=== PATIENT | female | born 1970 | race Two or more races ===

== ENCOUNTER 2019-01-20 15:26 | Emergency (ER) | payer MEDICAID ==
[~2019-01-20] VITALS: Ht 152.4 cm; Wt 57.2 kg
[2019-01-20] MEDS ORDERED: PROMETHAZINE HCL 25 MG/ML 1ML IM ONE (16:45)
[2019-01-20] MEDS ORDERED: KETOROLAC TROMETH 60MG/2ML VIAL IM ONE (16:45)
[2019-01-20] MEDS ORDERED: diphenhdrAMINE HCL 25 MG CAP PO ONE (16:45)
[2019-01-20 16:48] VITALS: BP 139/69
== END 2019-01-20 17:51 | disposition home or self-care (01) ==
LOC: ER 15:32
DX: R51 Headache (principal); E11.9 Type 2 diabetes mellitus without complications; I10 Essential (primary) hypertension; M19.90 Unspecified osteoarthritis, unspecified site; F17.210 Nicotine dependence, cigarettes, uncomplicated
CPT/HCPCS: 70450; 96372; 99284; J1885; J2550

== ENCOUNTER 2019-03-13 10:41 | Inpatient (IN) | payer MEDICAID ==
[~2019-03-13] VITALS: Ht 152.4 cm; Wt 65.5 kg
[~2019-03-13 10:41] MED LIST: AML5T PO; ASPI-404 PO; ATOR20TA50 PO; BENA10TA9 PO; CHOL20007 PO; FERR-20 PO; FOLI1TAB6 PO; FURO1TAB33 PO; INSU1INJ19 SC; METF-370 PO; METH2.5T3 PO; OMEP20TA PO; SEMA2INJ2 SC; WARF2TAB49 PO; WARF3TAB22 PO
[2019-03-13] MEDS ORDERED: SODIUM CHLORIDE 0.9% 500 ML IVB ONE (10:57)
[2019-03-13] MEDS ORDERED: MORPHINE SULFATE 4 MG/ML SYR/VIAL IV ONE (11:00)
[2019-03-13] MEDS ORDERED: FAMOTIDINE (10MG/ML) 2ML VL IV ONE (11:00)
[2019-03-13] MEDS ORDERED: ONDANSETRON HCL 4 MG/2 ML VIAL IV ONE (11:00)
[2019-03-13 11:33] LABS: Basophils # (auto) 0 uL; Basophils % (auto) 0.5 % (0.0-2.0); Eosinophils # (auto) 0.3 uL; Eosinophils % (auto) 3.4 % (0.0-7.0); Hematocrit 44.9 % (36.0-46.0); Hemoglobin 15.4 g/dL (12.2-16.2); Lymphocytes # (auto) 1.9 uL; Lymphocytes % (auto) 24.4 % (10.0-50.0); Mean Corpuscular Hemoglobin 32.7 pg (28.0-32.0); Mean Corpuscular Hgb Conc. 34.3 g/dL (32.0-36.0); Mean Corpuscular Volume 95.2 fL (80.0-100.0); Monocytes # (auto) 0.7 uL; Monocytes % (auto) 8.3 % (0.0-12.0); Neutrophils % (auto) 63.4 % (37.0-80.0); Nucleated Red Blood Cells % 0.2 %; Platelet Count (auto) 290 10^3/uL (140-450); Red Blood Cells 4.72 10^6/uL (4.0-5.20); White Blood Cell 7.9 10^3/uL (4.4-10.8)
[2019-03-13 11:49] LABS: Albumin 4.3 g/dL (3.4-5.0); BUN/Creatinine Ratio 14.1; Calcium 9.4 mg/dL (8.5-10.1); Magnesium 1.7 mg/dL (1.6-2.6); Potassium 4.3 mmol/L (3.5-5.1)
[2019-03-13 11:55] LABS: Bilirubin, Total 1.6 mg/dL (0.2-1.0); Total Protein 9.2 g/dL (6.4-8.2)
[2019-03-13 13:19] LABS: Urine Bacteria NONE SEEN /hpf (None Seen); Urine Blood Negative /uL (Negative); Urine Specific Gravity 1.008 (1.001-1.035); Urine WBC 4 /hpf (0 - 5)
[2019-03-13] MEDS ORDERED: SODIUM CHLORIDE 0.9% 1,000 ML IV SCH (14:26)
[2019-03-13] MEDS ORDERED: DEXTROSE (50%) 50ML SYRG IV PRN (14:30)
[2019-03-13] MEDS ORDERED: ONDANSETRON HCL 4 MG/2 ML VIAL IV PRN (14:30)
[2019-03-13] MEDS ORDERED: MORPHINE SULF INJ 2 MG/ML SYRINGE 1ML IV PRN ×2 (14:30)
[2019-03-13] MEDS ORDERED: NITROGLYCERIN 0.4 MG SL TAB SL PRN (14:30)
[2019-03-13] MEDS ORDERED: ACETAMINOPHEN 500 MG TAB PO PRN (14:30)
[2019-03-13] MEDS: cefTRIAXone 1GM/50ML D5W 50 ML IV SCH (15:17)
[2019-03-13] MEDS: metroNIDAZOLE 500MG/100ML 100 ML IV SCH ×2 (15:50→22:38)
[2019-03-13 16:42] LABS: INR 4.57 (0.9-1.15)
[2019-03-13] MEDS: InsuLIN REG 1unit/0.01ml Soln (100units/ml) SC SCH ×2 (17:00→21:23)
[2019-03-13] MEDS: ACCU-CHEK COMFORT CURVE STRIP VI SCH ×2 (17:00→21:23)
--- NOTE | 2019-03-13 17:15 | NUR ---
MS ADMIT TO FLOOR ASSUMED CARE OF PATIENT. ORIGINALLY TO BE ADMITTED TO ROOM 222A BUT INSTEAD PLACED 217A. PATIENT AWAKE AND ALERT SITTING UP IN BED. PATIENT PRIMARILY [place]BODIAN SPEAKING BUT UNDERSTANDS MOST [place] ISLANDER. REVIEWED POC WITH PATIENT AND INSTRUCTED TO CALL FOR ASSIST NEEDED. ORIENTED PATIENT TO CALL LIGHT, PHONE AND VISITING HOURS. BED IN LOWEST LOCKED POSITION, CALL LIGHT WITHIN REACH. WILL CONTINUE TO MONITOR.
[2019-03-13] MEDS: metFORMIN HYDROCHLORIDE 500 MG TAB PO SCH (18:00)
[2019-03-13] MEDS: HYDROcodone-ACET 5/325MG TAB PO PRN (18:22)
[2019-03-13 18:33] VITALS: BP 108/62
--- NOTE | 2019-03-13 18:51 | NUR ---
END OF SHIFT NOTE PATIENT AWAKE AND ALERT SITTING UP IN BED EATING DINNER. NO S/S OF DISTRESS OR SOB NOTED. BED IN LOWEST LOCKED POSITION, CALL LIGHT WITHIN REACH. WILL CONTINUE TO MONITOR. Addendum: 03/13/19 at 1852 by HI DE LA PAZ RN PLEASE DISREGARD, WILL ENDORSE CARE TO NOC RN UPON SHIFT CHANGE.
--- NOTE | 2019-03-13 19:35 | NUR ---
Opening Shift Note Assumed care of patient, awake and alert. No S/S of distress/SOB or pain. Bed locked in lowest position, side rails upx2, call light within reach. Instructed on POC and to call for assist PRN, will continue to monitor for changes Q1hr and PRN.
[2019-03-13] MEDS: DOCUSATE SOD 100 MG CAP PO SCH (21:18)
[2019-03-13] MEDS: ATORVASTATIN 20 MG TAB PO SCH (21:18)
[2019-03-13 22:01] VITALS: BP 95/59
[2019-03-14 05:25] VITALS: BP 118/72
[2019-03-14] MEDS: metroNIDAZOLE 500MG/100ML 100 ML IV SCH (06:30)
[2019-03-14] MEDS: ACCU-CHEK COMFORT CURVE STRIP VI SCH ×4 (06:33→21:26)
[2019-03-14] MEDS: InsuLIN REG 1unit/0.01ml Soln (100units/ml) SC SCH ×4 (06:33→21:26)
[2019-03-14 07:19] LABS: Basophils # (auto) 0 uL; Basophils % (auto) 0.7 % (0.0-2.0); Eosinophils # (auto) 0.3 uL; Eosinophils % (auto) 4.1 % (0.0-7.0); Hematocrit 39.3 % (36.0-46.0); Hemoglobin 13.3 g/dL (12.2-16.2); Lymphocytes # (auto) 2.3 uL; Mean Corpuscular Hemoglobin 32.6 pg (28.0-32.0); Mean Corpuscular Hgb Conc. 33.7 g/dL (32.0-36.0); Mean Corpuscular Volume 96.6 fL (80.0-100.0); Monocytes # (auto) 0.6 uL; Monocytes % (auto) 9.4 % (0.0-12.0); Neutrophils # (auto) 3.4 uL; Neutrophils % (auto) 51.8 % (37.0-80.0); Nucleated Red Blood Cells % 0.1 %; Platelet Count (auto) 247 10^3/uL (140-450); Red Blood Cells 4.07 10^6/uL (4.0-5.20); Red Cell Distribution Width 12.8 % (11.8-14.3); White Blood Cell 6.6 10^3/uL (4.4-10.8)
[2019-03-14 07:26] LABS: BUN/Creatinine Ratio 16.1; Calcium 7.8 mg/dL (8.5-10.1); Potassium 3.5 mmol/L (3.5-5.1)
--- NOTE | 2019-03-14 07:42 | NUR ---
OPENING SHIFT NOTE ASSUMED CARE OF PATIENT. PATIENT AWAKE AND ALERT SITTING UP IN BED. AID AT BEDSIDE OBTAINING VS AT THIS TIME. NO S/S OF DISTRESS OR SOB NOTED. BED IN LOWEST LOCKED POSITION, CALL LIGHT WITHIN REACH. CONTINUING TO MONITOR.
[2019-03-14 08:00] VITALS: BP 126/61
[2019-03-14] MEDS: cefTRIAXone 1GM/50ML D5W 50 ML IV SCH (09:11)
[2019-03-14] MEDS: DOCUSATE SOD 100 MG CAP PO SCH ×2 (09:12→21:25)
[2019-03-14] MEDS: metFORMIN HYDROCHLORIDE 500 MG TAB PO SCH ×2 (09:12→18:46)
[2019-03-14] MEDS: FAMOTIDINE 20 MG TAB PO SCH (09:12)
[2019-03-14] MEDS: ASPirin-EC 81 mg tab PO SCH (09:13)
[2019-03-14] MEDS: amLODIPine BESYLATE 5 MG TAB PO SCH (09:13)
[2019-03-14] MEDS: HYDROcodone-ACET 5/325MG TAB PO PRN ×2 (09:13→20:22)
[2019-03-14] MEDS ORDERED: OMEPRAZOLE 20MG CAP PO SCH (10:00)
[2019-03-14 12:00] VITALS: BP 114/72
--- NOTE | 2019-03-14 14:25 | NUR ---
AT BEDSIDE DR CEBALLOS AT BEDSIDE AT THIS TIME. NEW ORDERS PLACED. CONTINUING TO MONITOR.
[2019-03-14 15:00] VITALS: BP 148/92
--- NOTE | 2019-03-14 19:17 | NUR ---
END OF SHIFT NOTE PATIENT AWAKE AND ALERT SITTING UP IN BED. NO S/S OF DISTRESS OR SOB NOTED. BED IN LOWEST LOCKED POSITION, CALL LIGHT WITHIN REACH. CARE ENDORSED TO NOC RN.
[2019-03-14] MEDS: ATORVASTATIN 20 MG TAB PO SCH (21:26)
[2019-03-14 21:30] VITALS: BP 130/68
[2019-03-15 05:00] VITALS: BP 140/65
[2019-03-15] MEDS: InsuLIN REG 1unit/0.01ml Soln (100units/ml) SC SCH ×2 (06:18→11:30)
[2019-03-15] MEDS: ACCU-CHEK COMFORT CURVE STRIP VI SCH ×2 (06:18→11:30)
[2019-03-15] MEDS: HYDROcodone-ACET 5/325MG TAB PO PRN (06:19)
[2019-03-15 07:06] LABS: INR 1.64 (0.9-1.15)
[2019-03-15 08:15] VITALS: BP 130/69
[2019-03-15] MEDS: metFORMIN HYDROCHLORIDE 500 MG TAB PO SCH (08:15)
[2019-03-15] MEDS: cefTRIAXone 1GM/50ML D5W 50 ML IV SCH (08:53)
[2019-03-15 09:21] VITALS: BP 130/69
[2019-03-15] MEDS: FAMOTIDINE 20 MG TAB PO SCH (09:47)
[2019-03-15] MEDS: DOCUSATE SOD 100 MG CAP PO SCH (09:47)
[2019-03-15] MEDS: amLODIPine BESYLATE 5 MG TAB PO SCH (09:48)
[2019-03-15] MEDS: ASPirin-EC 81 mg tab PO SCH (09:48)
--- NOTE | 2019-03-15 11:54 | NUR ---
Nutrition Assessment Notes please see attached link for complete assessment Est. Needs BW [id number] kcal (23-25 kcal/kgBW), 65-71 gms pro (1.0-1.1 gms/kgBW). Will continue to monitor pertinent labs and reassess nutrient need prn Addendum: 03/15/19 at [address] Amended: Links added.
[2019-03-15 13:00] VITALS: BP 131/61
[2019-03-15 17:00] VITALS: BP 128/66
[2019-03-15 18:19] VITALS: BP 129/66
== END 2019-03-15 19:09 | disposition home or self-care (01) | DRG 463 ==
LOC: ER 10:41 → OVERFLOW 10:42 → CENTRAL 17:16
PROVIDERS: ADMIT Nurse Practitioner Acute Care; ATTEND Hospitalist
DX: N39.0 Urinary tract infection, site not specified (principal); E11.42 Type 2 diabetes mellitus with diabetic polyneuropathy; E11.51 Type 2 diabetes mellitus with diabetic peripheral angiopathy without gangrene; I11.0 Hypertensive heart disease with heart failure; I50.9 Heart failure, unspecified; E78.5 Hyperlipidemia, unspecified; I25.10 Atherosclerotic heart disease of native coronary artery without angina pectoris; M19.90 Unspecified osteoarthritis, unspecified site; R19.7 Diarrhea, unspecified; F17.210 Nicotine dependence, cigarettes, uncomplicated; I09.9 Rheumatic heart disease, unspecified; Z79.01 Long term (current) use of anticoagulants; Z95.2 Presence of prosthetic heart valve; Z79.4 Long term (current) use of insulin; Z82.49 Family history of ischemic heart disease and other diseases of the circulatory system
CPT/HCPCS: 36415; 74176; 80048; 80053; 81001; 82150; 82784; 82962; 83036; 83516; 83690; 83735; 85025; 85610; 86255; 87081; 87086; 93005; 94761; 96361; 96374; 96375; G0378; J0696; J1815; J2405; J3490

== ENCOUNTER 2019-04-21 09:55 | Inpatient (IN) | payer MEDICAID ==
[~2019-04-21] VITALS: Ht 160 cm; Wt 62.2 kg
[2019-04-21] MEDS ORDERED: SODIUM CHLORIDE 0.9% 500 ML IVB ONE (10:16)
[2019-04-21] MEDS ORDERED: MORPHINE SULFATE 4 MG/ML SYR/VIAL IV ONE (10:30)
[2019-04-21] MEDS ORDERED: ONDANSETRON HCL 4 MG/2 ML VIAL IV ONE (10:30)
[2019-04-21 10:53] LABS: Hematocrit 46.9 % (36.0-46.0); Hemoglobin 15.9 g/dL (12.2-16.2); Mean Corpuscular Hemoglobin 32.1 pg (28.0-32.0); Mean Corpuscular Hgb Conc. 33.9 g/dL (32.0-36.0); Mean Corpuscular Volume 94.6 fL (80.0-100.0); Platelet Count (auto) 253 10^3/uL (140-450); Red Blood Cells 4.96 10^6/uL (4.0-5.20); Red Cell Distribution Width 13.4 % (11.8-14.3); White Blood Cell 21.1 10^3/uL (4.4-10.8)
[2019-04-21 10:57] LABS: Urine Bacteria FEW /hpf (None Seen); Urine Blood TRACE /uL (Negative); Urine Specific Gravity 1.024 (1.001-1.035); Urine WBC 19 /hpf (0 - 5)
[2019-04-21 10:57] LABS: Basophils % (manual) 0 (0.0-2.0); Blast Cells 0; Eosinophils % (manual) 0 (0-7); Metamyelocytes % 0; Myelocytes % 0; Promyelocytes % 0; Reactive Lymphocytes 0
[2019-04-21 11:04] LABS: Albumin 4.8 g/dL (3.4-5.0); BUN/Creatinine Ratio 17.9; Calcium 6.2 mg/dL (8.5-10.1); Magnesium 1.9 mg/dL (1.6-2.6)
[2019-04-21 11:07] LABS: Band Neutrophils % (manual) 1; Lymphocytes % (manual) 3 (10.0-50.0); Monocytes % (manual) 5 (0-12)
[2019-04-21 11:09] LABS: Bilirubin, Total 1.6 mg/dL (0.2-1.0); Total Protein 9.7 g/dL (6.4-8.2)
[2019-04-21] MEDS ORDERED: MORPHINE SULF INJ 2 MG/ML SYRINGE 1ML IV PRN (12:00)
[2019-04-21] MEDS ORDERED: DEXTROSE (50%) 50ML SYRG IV PRN (12:00)
[2019-04-21] MEDS ORDERED: ONDANSETRON HCL 4 MG/2 ML VIAL IV PRN (12:00)
[2019-04-21] MEDS ORDERED: NITROGLYCERIN 0.4 MG SL TAB SL PRN (12:00)
[2019-04-21] MEDS ORDERED: ACETAMINOPHEN 500 MG TAB PO PRN (12:00)
[2019-04-21] MEDS: cefTRIAXone 1GM/50ML D5W 50 ML IV SCH (12:49)
[2019-04-21] MEDS: FAMOTIDINE 20 MG TAB PO SCH (12:49)
[2019-04-21] MEDS: SODIUM CHLORIDE 0.9% 1,000 ML IV SCH ×2 (12:50→16:40)
[2019-04-21 13:47] LABS: INR 1.22 (0.9-1.15); Partial Thromboplastin Time 31.9 sec (23.64-32.05)
[2019-04-21] MEDS: MORPHINE SULF INJ 2 MG/ML SYRINGE 1ML IV PRN (16:07)
[2019-04-21] MEDS: InsuLIN REG 1unit/0.01ml Soln (100units/ml) SC SCH ×2 (17:00→21:54)
[2019-04-21] MEDS ORDERED: WARFARIN SODIUM 10 MG TAB PO ONE (17:00)
[2019-04-21 17:19] VITALS: BP 133/69
[2019-04-21] MEDS: ACCU-CHEK COMFORT CURVE STRIP VI SCH ×2 (17:29→21:54)
[2019-04-21 17:38] VITALS: BP 133/69
[2019-04-21 21:51] VITALS: BP 109/52
[2019-04-21] MEDS: DOCUSATE SOD 100 MG CAP PO SCH (21:53)
[2019-04-21] MEDS: ATORVASTATIN 20 MG TAB PO SCH (21:53)
[2019-04-21] MEDS: INSULIN LANTUS (GLARGINE) 1 /0.01ml (100units/ml) SC SCH (21:54)
[2019-04-21] MEDS: HYDROcodone-ACET 5/325MG TAB PO PRN (21:59)
[2019-04-22] MEDS: SODIUM CHLORIDE 0.9% 1,000 ML IV SCH ×3 (04:07→14:51)
[2019-04-22 05:00] VITALS: BP 147/67
[2019-04-22] MEDS: ACCU-CHEK COMFORT CURVE STRIP VI SCH ×4 (06:30→21:29)
[2019-04-22] MEDS: InsuLIN REG 1unit/0.01ml Soln (100units/ml) SC SCH ×4 (06:30→21:28)
[2019-04-22] MEDS: HYDROcodone-ACET 5/325MG TAB PO PRN (08:34)
[2019-04-22] MEDS: DOCUSATE SOD 100 MG CAP PO SCH ×2 (08:34→21:32)
[2019-04-22] MEDS: ASPirin-EC 81 mg tab PO SCH (08:35)
[2019-04-22] MEDS: FAMOTIDINE 20 MG TAB PO SCH (08:35)
[2019-04-22] MEDS: cefTRIAXone 1GM/50ML D5W 50 ML IV SCH (08:35)
[2019-04-22] MEDS: BENAZEPRIL HCL 10 MG TAB PO SCH (08:36)
[2019-04-22] MEDS: amLODIPine BESYLATE 5 MG TAB PO SCH (08:36)
[2019-04-22 09:00] VITALS: BP 144/70
[2019-04-22 09:14] LABS: Basophils # (auto) 0 uL; Basophils % (auto) 0.4 % (0.0-2.0); Eosinophils # (auto) 0 uL; Eosinophils % (auto) 0.3 % (0.0-7.0); Hematocrit 39.2 % (36.0-46.0); Hemoglobin 13.3 g/dL (12.2-16.2); Lymphocytes # (auto) 1.1 uL; Lymphocytes % (auto) 13.4 % (10.0-50.0); Mean Corpuscular Hemoglobin 32.1 pg (28.0-32.0); Mean Corpuscular Volume 94.4 fL (80.0-100.0); Monocytes # (auto) 0.5 uL; Monocytes % (auto) 6.2 % (0.0-12.0); Neutrophils # (auto) 6.3 uL; Neutrophils % (auto) 79.7 % (37.0-80.0); Platelet Count (auto) 194 10^3/uL (140-450); Red Blood Cells 4.16 10^6/uL (4.0-5.20); Red Cell Distribution Width 13.1 % (11.8-14.3); White Blood Cell 7.9 10^3/uL (4.4-10.8)
[2019-04-22 09:28] LABS: INR 1.43 (0.9-1.15); Partial Thromboplastin Time 36.9 sec (23.64-32.05)
[2019-04-22 09:36] LABS: BUN/Creatinine Ratio 13.8; Calcium 7.7 mg/dL (8.5-10.1); Potassium 3.7 mmol/L (3.5-5.1)
[2019-04-22 13:00] VITALS: BP 134/60
[2019-04-22] MEDS ORDERED: NYSTATIN TOPICAL POWDER 15GM TOP ONE (14:15)
[2019-04-22] MEDS: CLINDAMYCIN 300MG IV 50 ML IV SCH ×2 (14:51→21:32)
[2019-04-22] MEDS: MORPHINE SULF INJ 2 MG/ML SYRINGE 1ML IV PRN ×2 (15:42→20:14)
[2019-04-22 17:00] VITALS: BP 128/84
[2019-04-22] MEDS ORDERED: WARFARIN SODIUM 2.5 MG TAB PO ONE (17:00)
[2019-04-22] MEDS: NYSTATIN TOPICAL POWDER 15GM TOP SCH (21:27)
[2019-04-22] MEDS: ATORVASTATIN 20 MG TAB PO SCH (21:27)
[2019-04-22] MEDS: INSULIN LANTUS (GLARGINE) 1 /0.01ml (100units/ml) SC SCH (21:29)
[2019-04-22 22:00] VITALS: BP 143/67
[2019-04-23] MEDS: MORPHINE SULF INJ 2 MG/ML SYRINGE 1ML IV PRN ×2 (03:01→10:22)
[2019-04-23] MEDS: SODIUM CHLORIDE 0.9% 1,000 ML IV SCH ×2 (03:02→10:45)
[2019-04-23 05:00] VITALS: BP 127/64
[2019-04-23 06:14] LABS: Basophils # (auto) 0 uL; Basophils % (auto) 0.4 % (0.0-2.0); Eosinophils # (auto) 0.2 uL; Eosinophils % (auto) 2.5 % (0.0-7.0); Hematocrit 37.3 % (36.0-46.0); Hemoglobin 12.7 g/dL (12.2-16.2); Lymphocytes # (auto) 1.5 uL; Lymphocytes % (auto) 20.7 % (10.0-50.0); Mean Corpuscular Hemoglobin 32.1 pg (28.0-32.0); Mean Corpuscular Volume 94.6 fL (80.0-100.0); Monocytes # (auto) 0.9 uL; Monocytes % (auto) 12.6 % (0.0-12.0); Neutrophils # (auto) 4.7 uL; Neutrophils % (auto) 63.8 % (37.0-80.0); Nucleated Red Blood Cells % 0.1 %; Platelet Count (auto) 197 10^3/uL (140-450); Red Blood Cells 3.94 10^6/uL (4.0-5.20); Red Cell Distribution Width 12.9 % (11.8-14.3); White Blood Cell 7.4 10^3/uL (4.4-10.8)
[2019-04-23] MEDS: CLINDAMYCIN 300MG IV 50 ML IV SCH ×3 (06:16→21:36)
[2019-04-23] MEDS: ACCU-CHEK COMFORT CURVE STRIP VI SCH ×4 (06:20→21:37)
[2019-04-23] MEDS: InsuLIN REG 1unit/0.01ml Soln (100units/ml) SC SCH ×4 (06:20→21:36)
[2019-04-23 06:30] LABS: INR 3.35 (0.9-1.15)
[2019-04-23 06:35] LABS: BUN/Creatinine Ratio 13.3; Calcium 7.7 mg/dL (8.5-10.1); Magnesium 2.3 mg/dL (1.6-2.6); Potassium 3.6 mmol/L (3.5-5.1)
[2019-04-23 08:54] VITALS: BP 124/56
[2019-04-23] MEDS: DOCUSATE SOD 100 MG CAP PO SCH ×2 (10:17→21:36)
[2019-04-23] MEDS: amLODIPine BESYLATE 5 MG TAB PO SCH (10:18)
[2019-04-23] MEDS: BENAZEPRIL HCL 10 MG TAB PO SCH (10:20)
[2019-04-23] MEDS: cefTRIAXone 1GM/50ML D5W 50 ML IV SCH (10:21)
[2019-04-23] MEDS: ASPirin-EC 81 mg tab PO SCH (10:21)
[2019-04-23] MEDS: FAMOTIDINE 20 MG TAB PO SCH (10:21)
[2019-04-23] MEDS: NYSTATIN TOPICAL POWDER 15GM TOP SCH ×2 (10:22→21:37)
[2019-04-23] MEDS ORDERED: FUROSEMIDE 20 MG TAB PO ONE (11:00)
[2019-04-23] MEDS ORDERED: POTASSIUM CHL 10 Meq TABLET PO ONE (11:00)
[2019-04-23 11:55] VITALS: BP 127/63
[2019-04-23 16:57] VITALS: BP 122/61
[2019-04-23] MEDS: ATORVASTATIN 20 MG TAB PO SCH (21:36)
[2019-04-23] MEDS: INSULIN LANTUS (GLARGINE) 1 /0.01ml (100units/ml) SC SCH (21:37)
[2019-04-23 21:50] VITALS: BP 129/59
[2019-04-24] MEDS: SODIUM CHLORIDE 0.9% 1,000 ML IV SCH (04:28)
[2019-04-24 05:10] VITALS: BP 124/52
[2019-04-24] MEDS: CLINDAMYCIN 300MG IV 50 ML IV SCH (06:03)
[2019-04-24] MEDS: InsuLIN REG 1unit/0.01ml Soln (100units/ml) SC SCH ×2 (06:24→11:52)
[2019-04-24] MEDS: ACCU-CHEK COMFORT CURVE STRIP VI SCH ×2 (06:25→11:31)
[2019-04-24 06:46] LABS: INR 2.89 (0.9-1.15); Partial Thromboplastin Time 46.4 sec (23.64-32.05)
[2019-04-24 06:50] LABS: Calcium 8.4 mg/dL (8.5-10.1); Potassium 3.9 mmol/L (3.5-5.1)
[2019-04-24 06:53] LABS: BUN/Creatinine Ratio 12.2
[2019-04-24 08:37] VITALS: BP 126/75
[2019-04-24] MEDS: cefTRIAXone 1GM/50ML D5W 50 ML IV SCH (09:58)
[2019-04-24] MEDS: DOCUSATE SOD 100 MG CAP PO SCH (09:58)
[2019-04-24] MEDS: BENAZEPRIL HCL 10 MG TAB PO SCH (09:59)
[2019-04-24] MEDS ORDERED: POTASSIUM CHL 10 Meq TABLET PO SCH (10:00)
[2019-04-24] MEDS: amLODIPine BESYLATE 5 MG TAB PO SCH (10:00)
[2019-04-24] MEDS ORDERED: FUROSEMIDE 20 MG TAB PO SCH (10:00)
[2019-04-24] MEDS: FAMOTIDINE 20 MG TAB PO SCH (10:00)
[2019-04-24] MEDS: ASPirin-EC 81 mg tab PO SCH (10:00)
[2019-04-24] MEDS: NYSTATIN TOPICAL POWDER 15GM TOP SCH (10:01)
[2019-04-24] MEDS ORDERED: CLIN300C8 PO (11:02)
[2019-04-24] MEDS ORDERED: SACC250C PO (11:17)
[2019-04-24 12:06] VITALS: BP 126/75
[2019-04-24 13:00] VITALS: BP 132/73
== END 2019-04-24 15:00 | disposition home or self-care (01) | DRG 720 ==
LOC: ER 09:57 → TELE 09:58 → TELE-WESTW 15:46
PROVIDERS: ADMIT Nurse Practitioner Acute Care; ATTEND Internal Medicine
DX: A41.9 Sepsis, unspecified organism (principal); I11.0 Hypertensive heart disease with heart failure; E11.65 Type 2 diabetes mellitus with hyperglycemia; I50.9 Heart failure, unspecified; K21.9 Gastro-esophageal reflux disease without esophagitis; M06.9 Rheumatoid arthritis, unspecified; L03.116 Cellulitis of left lower limb; F17.210 Nicotine dependence, cigarettes, uncomplicated; M19.90 Unspecified osteoarthritis, unspecified site; E78.5 Hyperlipidemia, unspecified; I25.10 Atherosclerotic heart disease of native coronary artery without angina pectoris; N30.00 Acute cystitis without hematuria; Z79.4 Long term (current) use of insulin; Z82.49 Family history of ischemic heart disease and other diseases of the circulatory system; Z87.440 Personal history of urinary (tract) infections; Z95.1 Presence of aortocoronary bypass graft; Z95.2 Presence of prosthetic heart valve; Z79.899 Other long term (current) drug therapy
CPT/HCPCS: 36415; 74176; 80048; 80053; 81001; 82150; 82962; 83036; 83690; 83735; 85007; 85025; 85027; 85610; 85730; 87040; 87086; 93970; 97116; 97163; 97530; G0378; J0696; J1815; J2405; J3490

== ENCOUNTER 2019-05-03 07:38 | Emergency (ER) | payer SELFPAY ==
[~2019-05-03] VITALS: Ht 160 cm; Wt 62.1 kg
[~2019-05-03 07:38] MED LIST changes: +CLIN300C8 PO; +SACC250C PO
[2019-05-03 07:52] VITALS: BP 150/76
[2019-05-03] MEDS ORDERED: cefTRIAXone SOD 1,000 MG VL IM ONE (08:15)
[2019-05-03] MEDS ORDERED: IBUPROFEN 600 MG TAB PO ONE (08:15)
== END 2019-05-03 09:12 | disposition home or self-care (01) ==
LOC: ER 07:40
DX: L03.116 Cellulitis of left lower limb (principal); I11.0 Hypertensive heart disease with heart failure; I50.9 Heart failure, unspecified; E11.9 Type 2 diabetes mellitus without complications; M19.90 Unspecified osteoarthritis, unspecified site; Z98.61 Coronary angioplasty status; F17.210 Nicotine dependence, cigarettes, uncomplicated; Z79.4 Long term (current) use of insulin; Z86.73 Personal history of transient ischemic attack (TIA), and cerebral infarction without residual deficits; Z79.899 Other long term (current) drug therapy
CPT/HCPCS: 96372; 99283; J0696

== ENCOUNTER 2019-08-11 06:11 | Emergency (ER) | payer MEDICAID ==
[~2019-08-11] VITALS: Ht 160 cm; Wt 59.0 kg
[2019-08-11 07:10] LABS: Urine Bacteria NONE SEEN /hpf (None Seen); Urine Blood Negative /uL (Negative); Urine Budding Yeast MODERATE /hpf (None Seen); Urine Mucus FEW (None Seen); Urine Specific Gravity 1.035 (1.001-1.035); Urine WBC 2 /hpf (0 - 5)
[2019-08-11 07:25] LABS: Basophils # (auto) 0.1 uL; Basophils % (auto) 0.6 % (0.0-2.0); Eosinophils # (auto) 0.1 uL; Eosinophils % (auto) 1.8 % (0.0-7.0); Hematocrit 43.3 % (36.0-46.0); Hemoglobin 14.9 g/dL (12.2-16.2); Lymphocytes # (auto) 1.6 uL; Lymphocytes % (auto) 19.4 % (10.0-50.0); Mean Corpuscular Hemoglobin 32.1 pg (28.0-32.0); Mean Corpuscular Hgb Conc. 34.4 g/dL (32.0-36.0); Mean Corpuscular Volume 93.3 fL (80.0-100.0); Monocytes # (auto) 0.6 uL; Monocytes % (auto) 7.3 % (0.0-12.0); Neutrophils # (auto) 5.7 uL; Neutrophils % (auto) 70.9 % (37.0-80.0); Nucleated Red Blood Cells % 0.1 %; Platelet Count (auto) 243 10^3/uL (140-450); Red Blood Cells 4.64 10^6/uL (4.0-5.20); Red Cell Distribution Width 13.7 % (11.8-14.3)
[2019-08-11 07:45] LABS: Albumin 3.7 g/dL (3.4-5.0); Calcium 8.5 mg/dL (8.5-10.1); Magnesium 1.9 mg/dL (1.6-2.6); Potassium 4.2 mmol/L (3.5-5.1)
[2019-08-11 07:48] LABS: BUN/Creatinine Ratio 16.1
[2019-08-11 07:51] LABS: Bilirubin, Total 1.1 mg/dL (0.2-1.0); Total Protein 8.2 g/dL (6.4-8.2)
[2019-08-11] MEDS ORDERED: SODIUM CHLORIDE 0.9% 1,000 ML IV ONE (08:29)
[2019-08-11] MEDS ORDERED: SODIUM CHLORIDE 0.9% 500 ML IVB ONE (08:29)
[2019-08-11] MEDS ORDERED: MORPHINE SULFATE 4 MG/ML SYR/VIAL IV ONE (08:30)
[2019-08-11] MEDS ORDERED: PROMETHAZINE HCL 25 MG/ML 1ML IV PRN (08:30)
[2019-08-11 09:30] LABS: INR 0.96 (0.9-1.15); Partial Thromboplastin Time 26.8 sec (23.64-32.05)
[2019-08-11 10:37] VITALS: BP 151/63
[2019-08-11] MEDS ORDERED: InsuLIN REG 1unit/0.01ml Soln (100units/ml) SC ONE (11:15)
== END 2019-08-11 11:42 | disposition home or self-care (01) ==
LOC: ER 06:11
DX: R10.31 Right lower quadrant pain (principal); E11.65 Type 2 diabetes mellitus with hyperglycemia; M06.9 Rheumatoid arthritis, unspecified; K59.01 Slow transit constipation; K21.9 Gastro-esophageal reflux disease without esophagitis; E78.5 Hyperlipidemia, unspecified; F17.210 Nicotine dependence, cigarettes, uncomplicated; Z79.4 Long term (current) use of insulin; Z79.899 Other long term (current) drug therapy; Z98.61 Coronary angioplasty status
CPT/HCPCS: 36415; 71046; 74176; 80053; 81001; 81025; 82150; 82962; 83690; 83735; 84443; 85025; 85610; 85730; 96361; 96372; 96374; 96375; 99284; J1815; J2270; J2550; J7030; J7040

== ENCOUNTER 2019-12-05 14:06 | Inpatient (IN) | payer MEDICAID ==
[2019-12-05] VITALS (30 sets, daily range): BP systolic 43–257; BP diastolic 15–186
[~2019-12-05] VITALS: Ht 152.4 cm; Wt 62.0 kg
[2019-12-05] MEDS ORDERED: LORazepam 2MG/ML-1ML VIAL IV ONE (14:30)
[2019-12-05 14:55] LABS: Basophils # (auto) 0.1 10 ^3/uL (0-0.2); Basophils % (auto) 0.4 % (0.0-2.0); Eosinophils # (auto) 0.1 10 ^3/uL (0-0.8); Eosinophils % (auto) 0.4 % (0.0-7.0); Hematocrit 51.3 % (36.0-46.0); Lymphocytes # (auto) 2.5 10 ^3/uL (0.4-5.4); Lymphocytes % (auto) 15.9 % (10.0-50.0); Mean Corpuscular Hemoglobin 32.5 pg (28.0-32.0); Mean Corpuscular Hgb Conc. 33.1 g/dL (32.0-36.0); Mean Corpuscular Volume 98.1 fL (80.0-100.0); Monocytes # (auto) 0.8 10 ^3/uL (0-1.3); Monocytes % (auto) 4.8 % (0.0-12.0); Neutrophils # (auto) 12.2 10 ^3/uL (1.6-8.6); Neutrophils % (auto) 78.5 % (37.0-80.0); Nucleated Red Blood Cells % 0.1 %; Platelet Count (auto) 399 10^3/uL (140-450); Red Blood Cells 5.23 10^6/uL (4.0-5.20); White Blood Cell 15.5 10^3/uL (4.4-10.8)
[2019-12-05] MEDS ORDERED: FUROSEMIDE 40 MG/4 ML VIAL IV ONE (15:00)
[2019-12-05 15:07] LABS: Albumin 3.6 g/dL (3.4-5.0); Calcium 9.1 mg/dL (8.5-10.1); Potassium 3.8 mmol/L (3.5-5.1)
[2019-12-05] MEDS ORDERED: AZITHROMYCIN 500MG/ 250ML 250 ML IV ONE (15:15)
[2019-12-05] MEDS ORDERED: cefTRIAXone 1GM/50ML D5W 50 ML IV ONE (15:15)
[2019-12-05 15:21] LABS: BUN/Creatinine Ratio 17.2
[2019-12-05 15:26] LABS: Bilirubin, Total 1.1 mg/dL (0.2-1.0)
[2019-12-05] MEDS ORDERED: NITROGLYCERIN 0.4 MG SL TAB SL PRN ×2 (15:30→15:45)
[2019-12-05] MEDS ORDERED: MORPHINE SULF INJ 2 MG/ML SYRINGE 1ML IV PRN (15:30)
[2019-12-05] MEDS ORDERED: InsuLIN REG 1unit/0.01ml Soln (100units/ml) IV ONE (15:30)
[2019-12-05] MEDS ORDERED: DEXTROSE (50%) 50ML SYRG IV PRN ×3 (15:30→20:15)
[2019-12-05] MEDS ORDERED: MORPHINE SULF INJ 2 MG/ML SYRINGE 1ML IV ONE (15:30)
[2019-12-05 15:37] LABS: Lactic Acid w/Reflex 4.5 mmol/L (0.4-2.0)
[2019-12-05] MEDS ORDERED: MORPHINE SULFATE 4 MG/ML SYR/VIAL IV PRN (15:45)
[2019-12-05] MEDS ORDERED: LORazepam 0.5 MG TAB PO PRN (15:45)
[2019-12-05] MEDS ORDERED: DOXYCYCLINE 100MG/250ML 250 ML IV SCH (15:45)
[2019-12-05] MEDS ORDERED: ONDANSETRON HCL 4 MG/2 ML VIAL IV PRN (15:45)
[2019-12-05 15:55] LABS: CRP High Sensitivity 3.05 mg/dL (< 0.3)
[2019-12-05] MEDS ORDERED: FUROSEMIDE 100 MG/10ML VIAL IV ONE (16:00)
[2019-12-05] MEDS ORDERED: LACTATED RINGER'S 1,000 ML IV SCH (16:30)
[2019-12-05] MEDS ORDERED: SODIUM CHLORIDE 0.9% 1,850 ML IV ONE ×2 (16:30→19:30)
[2019-12-05] MEDS ORDERED: PROPOFOL 0 ML IV ONE (16:50)
[2019-12-05] MEDS ORDERED: LORazepam 2MG/ML-1ML VIAL ONE ×2 (16:55→17:44)
[2019-12-05] MEDS: INSULIN LISPRO (HUMAN) 100 UNITS/ML ML SC SCH (17:00)
[2019-12-05] MEDS ORDERED: NITROGLYCERIN 0.4 MG SL TAB SL ONE (17:00)
--- NOTE | 2019-12-05 17:16 | NUR ---
Pt being admitted to ICU [facility] admitted to ICU via gurney on phototypesetting equipment monitor, and portable 02. Patient transferred to bed, connected to ICU monitoring and oxygen, and weighed by bed scale. Patient oriented to Karishma Robert, primary RN, unit, room, bed, and unit policies. Patient placed on high flow oxygen per respiratory. Patient is Swedish speaking only. Apryl ABATEMENT WORKER spoke to patient via telephone to explain to patient in Swedish about central line placement. Patient verbalized understanding to Apryl and consented to procedure. Dr Cobb at bedside to place central line. Patient combative, restless, and anxious at this time. Patient' respiratory status continued to deteriorate to where patient was becoming lethargic and diaphoretic. Dr Cbob and Dr Davies now at at bedside and agreed that patient needed intubated for airway protection. Due to patient thrashing only primary IV, which was a 22g to left forearm dislodged with no other IV access at this time. Dr Cobb placed right femoral central line and cleared to use for medications for intubation. Dr Cobb intubated patient and patient placed on ventilator. Patient continues to be tachycardic and tachypneic at this time. Sedations started at this time at higher dosing than ordered per protocol due to patients respiratory status, MD aware. Will continue to monitor and titrate as needed.
--- NOTE | 2019-12-05 17:20 | NUR ---
BEDSIDE Dr. Cobb bedside with primary RN Karishma Robert.
[2019-12-05] MEDS ORDERED: BUMETANIDE 2.5mg/10ml (0.25 mg/ml) INJ IV ONE (17:30)
--- NOTE | 2019-12-05 17:30 | NUR ---
RT PAGED RT paged stat to ICU d/t patients tachypnea and sob.
[2019-12-05] MEDS ORDERED: ROCURONIUM 10MG/ML 10ML VIAL IV ONE (17:36)
[2019-12-05] MEDS ORDERED: ETOMIDATE (2MG/ML) 20ML VIAL IV ONE (17:36)
[2019-12-05] MEDS ORDERED: SUCCINYLCHOLINE CHLORIDE 20 MG/ML 10ML VIAL IV ONE (17:36)
--- NOTE | 2019-12-05 17:48 | NUR ---
INTUBATED Dr. Cobb called regarding patient's respiratory status. Order received for intubation. Respiratory Therapist notified and at bedside. Patient instructed on need for intubation and possible sedation while on ventilator. Patient intubated by Reza with 7.5 ETT, 23 at the lip, and OGT/NGT placed. Medications given as follows: Etomidate 20 Suc 120
[2019-12-05] MEDS ORDERED: NOREPINEPHRINE 8 MG/250ML KIT 0 ML IV ONE (17:50)
[2019-12-05] MEDS: FUROSEMIDE 20 MG/2 ML VIAL IV SCH (18:00)
[2019-12-05] MEDS ORDERED: InsuLIN REG 1unit/0.01ml Soln (100units/ml) SC SCH ×2 (18:00→20:00)
[2019-12-05] MEDS ORDERED: ACCU-CHEK COMFORT CURVE STRIP VI SCH (18:00)
[2019-12-05] MEDS ORDERED: fentaNYL Drip 2500mCg/250mlNS 0 ML IV ONE (18:04)
[2019-12-05] MEDS ORDERED: MIDAZOLAM DRIP 50 mg/50mL 50 ML IV ONE (18:04)
[2019-12-05] MEDS: PROPOFOL 100 ML IV SCH (18:05)
[2019-12-05] MEDS: MIDAZOLAM DRIP 50 mg/50mL 50 ML IV SCH (18:05)
[2019-12-05] MEDS ORDERED: PROPOFOL 100 ML IV ONE (18:05)
[2019-12-05] MEDS: CARVEDILOL 3.125 MG TAB PO SCH (18:15)
[2019-12-05] MEDS ORDERED: OSELTAMIVIR 75MG/5ML ORAL SUSP GT ONE (18:15)
--- NOTE | 2019-12-05 18:45 | NUR ---
RT PAGED STAT Patient having peak pressures and desaturating.
[2019-12-05 18:56] LABS: INR 1.23 (0.9-1.15); Partial Thromboplastin Time 33.3 sec (23.64-32.05)
--- NOTE | 2019-12-05 19:00 | NUR ---
CODE BLUE CALLED
--- NOTE | 2019-12-05 19:00 | NUR ---
Hemodynamics Patient blood pressure decreased, while reassessing blood pressure after cuff reposition, patient was noted to have pulse that was decreasing rapidly. Called for crash cart. See code sheet.
[2019-12-05] MEDS ORDERED: NOREPINEPHRINE 8 MG/250ML KIT 250 ML IV ONE (19:03)
--- NOTE | 2019-12-05 19:06 | NUR ---
BEDSIDE Dr. Davies to the bedside. Primary RN Karishma still in room at this time.
[2019-12-05] MEDS ORDERED: AMIODARONE HCL (50 MG/ ML) 3 ML VIAL IV ONE (19:14)
[2019-12-05] MEDS ORDERED: AMIODARONE 450mg/250ml AE 250 ML IV ONE (19:14)
[2019-12-05 19:21] LABS: Lactic Acid w/Reflex 10.8 mmol/L (0.4-2.0)
[2019-12-05] MEDS ORDERED: AMIODARONE HCL 150 MG in D5W 5% 100 ML IV ONE (19:30)
[2019-12-05] MEDS ORDERED: HEPARIN SODIUM (PORCINE) 5000 UNITS/ML 1ML VIAL IV ONE (19:30)
[2019-12-05] MEDS ORDERED: WARFARIN SODIUM 2 MG TAB PO ONE (19:30)
[2019-12-05] MEDS: NOREPINEPHRINE 8 MG/250ML KIT 250 ML IV SCH (19:30)
[2019-12-05] MEDS ORDERED: MAGNESIUM SULFATE 1GM/100ML 100 ML IV ONE (19:30)
[2019-12-05] MEDS ORDERED: AMIODARONE 450mg/250ml AE 250 ML IV SCH (19:33)
[2019-12-05] MEDS ORDERED: HYDROCORTISONE SOD SUCC 100 MG/2ML INJ VIAL IV ONE (19:45)
[2019-12-05] MEDS: ACCU-CHEK COMFORT CURVE STRIP VI SCH ×3 (20:00→22:30)
[2019-12-05] MEDS: VASOPRESSIN 50 UNITS in D5W 5% 247.5 ML IV SCH (20:00)
--- NOTE | 2019-12-05 20:03 | NUR ---
opeing note received patient from [facility]. patient s/p cpr and intubation. intubated with 7.5 ett @22 at lip vent setting ac 16 vt 500 fio2 100% peep 8 stating 1005 spo2 on bedside monitor. sr 95 with bp 119/50 on levophed 30 max support. defib zole monitor at bedside. ngt to right nare patent clamped. east patient to gravity. bed at lowest position. for more information see interventions. for gtts and their titrations see iv spread sheet.
[2019-12-05] MEDS ORDERED: InsuLIN R (HUMAN) 100 UNITS in SODIUM CHL 0.9% 99 ML IV SCH (20:05)
[2019-12-05] MEDS ORDERED: VANCOMYCIN PER PHARMACY 0 MG IV SCH (20:15)
[2019-12-05] MEDS ORDERED: SODIUM BICARBONATE 8.4 % INJ 50ML VIAL IV ONE ×3 (20:15→22:15)
[2019-12-05] MEDS ORDERED: fentaNYL Drip 2500mCg/250mlNS 250 ML IV ONE (20:45)
[2019-12-05] MEDS ORDERED: VANCOMYCIN 1GM/250ML 250 ML IV ONE ×3 (20:45→20:47)
--- NOTE | 2019-12-05 20:45 | NUR ---
orteg porcelain mixer ad bedside updated on patient status, new orders received.
[2019-12-05] MEDS ORDERED: ALBUMIN 5% 250 ML IV ONE (20:48)
[2019-12-05 20:51] LABS: Basophils # (auto) 0 10 ^3/uL (0-0.2); Basophils % (auto) 0.2 % (0.0-2.0); Eosinophils # (auto) 0.1 10 ^3/uL (0-0.8); Eosinophils % (auto) 0.3 % (0.0-7.0); Hematocrit 41.5 % (36.0-46.0); Hemoglobin 13.2 g/dL (12.2-16.2); Lymphocytes # (auto) 1.1 10 ^3/uL (0.4-5.4); Lymphocytes % (auto) 5.7 % (10.0-50.0); Mean Corpuscular Hemoglobin 32.4 pg (28.0-32.0); Mean Corpuscular Hgb Conc. 31.9 g/dL (32.0-36.0); Mean Corpuscular Volume 101.5 fL (80.0-100.0); Monocytes # (auto) 1.1 10 ^3/uL (0-1.3); Neutrophils # (auto) 16.2 10 ^3/uL (1.6-8.6); Neutrophils % (auto) 87.8 % (37.0-80.0); Nucleated Red Blood Cells % 0.1 %; Platelet Count (auto) 267 10^3/uL (140-450); Red Blood Cells 4.08 10^6/uL (4.0-5.20); Red Cell Distribution Width 13.6 % (11.8-14.3); White Blood Cell 18.4 10^3/uL (4.4-10.8)
[2019-12-05 21:01] LABS: INR 1.3 (0.9-1.15); Partial Thromboplastin Time 36.8 sec (23.64-32.05)
[2019-12-05 21:03] LABS: Albumin 2.2 g/dL (3.4-5.0); Magnesium 2.1 mg/dL (1.6-2.6); Potassium 5.1 mmol/L (3.5-5.1)
[2019-12-05 21:12] LABS: BUN/Creatinine Ratio 13.9; Bilirubin, Total 0.6 mg/dL (0.2-1.0); Phosphorus 8.9 mg/dL (2.5-4.90); Total Protein 5.8 g/dL (6.4-8.2)
--- NOTE | 2019-12-05 21:22 | NUR ---
started insulin gtt original finger stick bs is 569. per imer start insulin @ unit per hour then follow hospital protocol
[2019-12-05] MEDS: fentaNYL Drip 2500mCg/250mlNS 250 ML IV SCH (21:25)
--- NOTE | 2019-12-05 21:25 | NUR ---
started patient on fentanyl started at 25mcg for ventilator synchrony. per willams order
--- NOTE | 2019-12-05 21:47 | NUR ---
bs 516 increased to 4 units insulin per sliding scale Addendum: 12/05/19 at 2149 by Doug Cortez RN RN increased to 6 ml/hr
[2019-12-05] MEDS: ASCORBIC ACID 500 MG TAB PO SCH (22:00)
[2019-12-05] MEDS ORDERED: ATORVASTATIN 20 MG TAB PO SCH (22:00)
[2019-12-05] MEDS: PIPERACILLIN-TAZOB 2.25GM 50 ML IV SCH (22:00)
[2019-12-05] MEDS ORDERED: ALBUTEROL SULF HFA 90MCG INH 200DOSE IN SCH (22:00)
[2019-12-05] MEDS: ZINC SULFATE 220mg CAP or TAB PO SCH (22:00)
[2019-12-05] MEDS ORDERED: BENAZEPRIL HCL 10 MG TAB PO SCH (22:00)
[2019-12-05] MEDS: ASPirin-EC 81 mg tab PO SCH (22:00)
[2019-12-05] MEDS ORDERED: INSULIN LANTUS (GLARGINE) 1 /0.01ml (100units/ml) SC SCH (22:00)
[2019-12-05] MEDS ORDERED: SODIUM BICARBONATE 50ML VIAL 150 ML in SOD CHL 0.45% 1,000 ML IV SCH (22:15)
--- NOTE | 2019-12-05 22:20 | NUR ---
CALLED HOSPITALIST UPDATED ON PATIENT STATUS, VERIFIED ORDERS AND NEW ORDERS RECEIVED
--- NOTE | 2019-12-05 22:46 | NUR ---
bs 547 insultin at 6
[2019-12-05] MEDS: HEPARIN DRIP/D5W 100UNITS/ML 250 ML IV SCH (22:58)
--- NOTE | 2019-12-05 22:58 | NUR ---
heparin gtt started bolus per pharmacy given, gtt set at 12units per 62kg = 744units/7.44ml/hr
[2019-12-06] VITALS (99 sets, daily range): BP systolic 81–159; BP diastolic 46–94
--- NOTE | 2019-12-06 00:01 | NUR ---
bs 516 insulin gtt @6
[2019-12-06] MEDS ORDERED: SODIUM CHLORIDE 0.9% 1,000 ML IV SCH ×2 (00:05→02:05)
[2019-12-06] MEDS: HYDROCORTISONE SOD SUCC 100 MG/2ML INJ VIAL IV SCH ×4 (00:28→18:46)
[2019-12-06] MEDS: ACCU-CHEK COMFORT CURVE STRIP VI SCH ×18 (00:28→22:30)
[2019-12-06] MEDS: NOREPINEPHRINE 8 MG/250ML KIT 250 ML IV SCH ×4 (00:33→18:37)
[2019-12-06] MEDS: MIDAZOLAM DRIP 50 mg/50mL 50 ML IV SCH ×4 (00:34→18:29)
[2019-12-06] MEDS ORDERED: InsuLIN R (HUMAN) 100 UNITS in SODIUM CHL 0.9% 99 ML IV SCH (01:32)
[2019-12-06] MEDS ORDERED: AMIODARONE 450mg/250ml AE 250 ML IV SCH ×2 (01:33→14:06)
--- NOTE | 2019-12-06 01:35 | NUR ---
increase insulin sliding scale to algorithm 2 bs 459 insulin set to 10units per hour
--- NOTE | 2019-12-06 02:32 | NUR ---
AT BEDSIDE KOFI HOWELL AT BEDSIDE, UP DATED ON PATIENT STATUS. NEW ORDERS RECEIVED.
[2019-12-06] MEDS: SODIUM BICARBONATE 50ML VIAL 150 ML in SOD CHL 0.45% 1,000 ML IV SCH ×2 (02:56→09:21)
--- NOTE | 2019-12-06 03:12 | NUR ---
bs 401
--- NOTE | 2019-12-06 03:30 | NUR ---
COMPLETE BED BATH GIVEN LINENS AND GOWN CHANGED. PATIENT RECEIVED BATH WITH SOAP AND WATER
[2019-12-06 03:43] LABS: Urine WBC None Seen /hpf (0 - 5)
[2019-12-06 03:55] LABS: Basophils # (auto) 0 10 ^3/uL (0-0.2); Basophils % (auto) 0.1 % (0.0-2.0); Eosinophils # (auto) 0 10 ^3/uL (0-0.8); Hematocrit 41.4 % (36.0-46.0); Hemoglobin 14.1 g/dL (12.2-16.2); Lymphocytes # (auto) 1.4 10 ^3/uL (0.4-5.4); Lymphocytes % (auto) 6.8 % (10.0-50.0); Mean Corpuscular Hemoglobin 32.5 pg (28.0-32.0); Mean Corpuscular Hgb Conc. 34.1 g/dL (32.0-36.0); Mean Corpuscular Volume 95.3 fL (80.0-100.0); Monocytes % (auto) 5.1 % (0.0-12.0); Neutrophils # (auto) 17.5 10 ^3/uL (1.6-8.6); Nucleated Red Blood Cells % 0.2 %; Platelet Count (auto) 260 10^3/uL (140-450); Red Blood Cells 4.35 10^6/uL (4.0-5.20); Red Cell Distribution Width 12.7 % (11.8-14.3); White Blood Cell 19.9 10^3/uL (4.4-10.8)
[2019-12-06 04:08] LABS: Urine Amorphous Crystal FEW /hpf (None Seen); Urine Bacteria NONE SEEN /hpf (None Seen); Urine Blood 1+ /uL (Negative); Urine Hyaline Cast MANY /lpf (0 - 2); Urine Specific Gravity 1.008 (1.001-1.035)
[2019-12-06 04:12] LABS: Protein, Urine 14.5 mg/dL (0.0-11.9)
[2019-12-06 04:14] LABS: Albumin 3.1 g/dL (3.4-5.0); Calcium 7.4 mg/dL (8.5-10.1); Potassium 3.4 mmol/L (3.5-5.1)
[2019-12-06 04:23] LABS: BUN/Creatinine Ratio 14.7; Phosphorus 2.4 mg/dL (2.5-4.90); Total Protein 7.2 g/dL (6.4-8.2)
[2019-12-06 04:29] LABS: % Iron Saturation 12.2 % (15-50)
[2019-12-06] MEDS: InsuLIN R (HUMAN) 100 UNITS in SODIUM CHL 0.9% 99 ML IV SCH (04:42)
--- NOTE | 2019-12-06 04:43 | NUR ---
increased sliding scale accu check 368 on 10 units of insulin. increased to algorithm 3 and set insulin gtt to 16units per hour
--- NOTE | 2019-12-06 05:19 | NUR ---
CRITICAL LAB VALUE PAGED HOSPITALIST, TROP 4.01 AWAITING CALL BACK
[2019-12-06 05:33] LABS: INR 1.4 (0.9-1.15)
[2019-12-06 05:37] LABS: Partial Thromboplastin Time 79.1 sec (23.64-32.05)
--- NOTE | 2019-12-06 05:40 | NUR ---
HEPARIN DECREASED PTT 79.1 DECREASED PER PHARMACY PROTOCOL.
--- NOTE | 2019-12-06 05:41 | NUR ---
DARÍO COMPLETED PANCHITO MD AWAITING RETURN CALL
--- NOTE | 2019-12-06 05:51 | NUR ---
RECEIVED CALL BACK FROM KOFI HOWELL UPDATED ON PATIENT LABS AND EKG, NO NEW ORDERS RECEIVED
[2019-12-06] MEDS: FUROSEMIDE 20 MG/2 ML VIAL IV SCH ×2 (06:10→18:46)
[2019-12-06] MEDS: PIPERACILLIN-TAZOB 2.25GM 50 ML IV SCH (06:10)
[2019-12-06 06:41] LABS: Cholesterol 212 mg/dL (< 200); Triglycerides 159 mg/dL (< 150)
[2019-12-06 06:43] LABS: HDL Cholesterol 40 mg/dL (40-59); LDL Cholesterol 151 mg/dL (< 100)
[2019-12-06] MEDS: INSULIN LISPRO (HUMAN) 100 UNITS/ML ML SC SCH (07:00)
--- NOTE | 2019-12-06 07:00 | NUR ---
REPORT RECEIVED FROM PERFORMANCE TEST ENGINEER NURSE. PATIENT RESTING IN BED AT THIS TIME. RESPIRATIONS EVEN AND UNLABORED, INTUBATED AND SEDATED. BED IN LOW POSITION. WILL CONTINUE TO MONITOR.
--- NOTE | 2019-12-06 07:39 | NUR ---
bs 275 no change on insulin gtt
[2019-12-06] MEDS: CARVEDILOL 3.125 MG TAB PO SCH ×2 (08:00→18:00)
--- NOTE | 2019-12-06 09:58 | NUR ---
UPDATED SON JENNY VIA TELEPHONE WHO TRANSLATED UPDATE TO ON TELEPHONE. ALL QUESTIONS AND CONCERNS ADDRESSED.
[2019-12-06] MEDS: DOCUSATE SOD 100 MG CAP PO SCH (10:00)
[2019-12-06] MEDS ORDERED: CHOLECALCIFEROL (VITD3) 1,000IU=25mCg TAB PO SCH (10:00)
[2019-12-06] MEDS ORDERED: MEROPENEM 1GM IVPB 100 ML IV ONE (10:30)
[2019-12-06] MEDS ORDERED: POTASSIUM PHOSPHATE 26.4 MEQ in SODIUM CHL 0.9% 100 ML IV ONE (10:45)
--- NOTE | 2019-12-06 10:45 | NUR ---
DR ALATORRE AT ON UNIT TO DISCUSS PLAN OF CARE. ALL ORDERS NOTED IN CHART.
[2019-12-06] MEDS: FLORASTOR (S. BOULARDII) 250 MG CAP PO SCH (10:46)
[2019-12-06] MEDS: ASPirin-EC 81 mg tab PO SCH (10:46)
[2019-12-06] MEDS: ASCORBIC ACID 500 MG TAB PO SCH (10:47)
[2019-12-06] MEDS: FOLIC ACID 1 MG TAB PO SCH (10:47)
[2019-12-06] MEDS: ZINC SULFATE 220mg CAP or TAB PO SCH (10:48)
[2019-12-06] MEDS: OSELTAMIVIR 30MG/5ML ORAL SUSP GT SCH ×2 (10:48→21:24)
--- NOTE | 2019-12-06 11:00 | NUR ---
DR MARKS ON UNIT TO DISCUSS PLAN OF CARE. ALL ORDERS NOTED IN CHART.
--- NOTE | 2019-12-06 11:00 | NUR ---
WOUND CARE NOTE: PATIENT RECENTLY ADMITTED TO [facility] WITH DIAGNOSIS OF ACUTE EXACERBATION OF SYSTOLIC HEART FAILURE. CURRENT TIM SCORE IS 12. PATIENT IS INTUBATED, SEDATED, PATIENT IS AIRBORNE ISOLATION AT THIS TIME. . SHE IS CURRENTLY WOUND FREE AT THIS TIME PER BEDSIDE NURSE, CATY. PATIENT WOULD BENEFIT FROM: FREQUENT TURN SCHEDULE Q 2 HOURS, PRN CONDITION PERMITS, WITH PRESSURE REDISTRIBUTION USING PILLOWS/WEDGES, SKIN/WOUND CARE PLAN, DIETARY CONSULT, BID/PRN APPLICATIONS WITH MOISTURE BARRIER CREAM, OPTIFOAM GENTLE SACRAL DRESSING A PREVENTATIVE, CONTINUED MONITORING BY WOUND CARE TEAM.
[2019-12-06] MEDS: SODIUM BICARBONATE 50ML VIAL 50 ML in SOD CHL 0.45% 1,000 ML IV SCH (11:05)
[2019-12-06 11:28] LABS: BUN/Creatinine Ratio 18.4; Calcium 7.3 mg/dL (8.5-10.1); Potassium 3.1 mmol/L (3.5-5.1)
[2019-12-06 12:15] LABS: INR 1.22 (0.9-1.15)
--- NOTE | 2019-12-06 12:15 | NUR ---
#20 EJ RT STARTED. MERROPENUM INFUSED. DR. TRAVIS NOW AT BEDSIDE PLACING TRIPLE LUMEN CATH RT IJ WITH EASE UNDER FULL STERILE TECHNIQUE. NO BLEEDING NOTED. IN THE PROCESS, RT EJ GOT PULLED OUT WITH OOZING AT SITE. Addendum: 12/06/19 at 1447 by Jennifer Sharp RN ABOVE NOTE DONE AT 1318
[2019-12-06 12:16] LABS: Partial Thromboplastin Time 72.5 sec (23.64-32.05)
--- NOTE | 2019-12-06 12:19 | NUR ---
NUTRITION CONSULT/ASSESSMENT NOTES Consider EN Support with Glucerna 1.2 Francis @50ml/hr goal rate to meet energy and protein needs. Please refer to link notes of nutrition screen form filed under the intervention section of the plan of care for further details. Est. Energy Needs: [id number] kcal (20-25 kcal/kg BW). Est. Protein Needs: 62-74 gms/day (1.0-1.2 gms/kg BW). Will continue to monitor pertinent labs and reassess nutrient need prn Addendum: 12/06/19 at [address] Amended: Links added.
--- NOTE | 2019-12-06 12:56 | NUR ---
EKG PERFORMED DUE TO INCREASED IRREGULAR HEART RATE. HEMA LU MD.
[2019-12-06] MEDS ORDERED: EPINEPHrine HCL 1 MG/10 ML SYRG IV ONE (13:38)
[2019-12-06] MEDS ORDERED: ATROPINE SULF 1 MG/10ml SYR IV ONE (13:38)
[2019-12-06] MEDS ORDERED: SODIUM BICARBONATE 8.4% INJ 50ML SYRINGE IV ONE (13:38)
--- NOTE | 2019-12-06 13:55 | NUR ---
SPOKE TO DR MARKS ON PATIENT RHYTHM CHANGE AND EKG THAT WAS PERFORMED SHOWING PATIENT IS IN A FIB RVR RANGING FROM 120S-160'S. PER MD START PATIENT ON AMIODARONE DRIP WITH NO BOLUS. ALL ORDERS NOTED IN CHART.
--- NOTE | 2019-12-06 14:00 | NUR ---
CONSENT HERMELINDO LAMA FROM ICU TELEPHONE CONSENTED WITH SON AND TO PLACE CENTRAL LINE.
--- NOTE | 2019-12-06 14:15 | NUR ---
DR TRAVIS AT BEDSIDE TO PLACE CENTRAL LINE. STAT CXR ORDERED.
[2019-12-06] MEDS ORDERED: POTASSIUM CHLORIDE 60 MEQ, LIDOCAINE 1% (LOCAL ANESTH.) 6 ML in SODIUM CHL 0.9% 500 ML IV ONE (15:15)
--- NOTE | 2019-12-06 15:45 | NUR ---
DR MUIR AT BEDSIDE TO ASSESS PATIENT AND DISCUSS PLAN OF CARE. ALL ORDER NOTED IN CHART.
[2019-12-06] MEDS ORDERED: CLOPIDOGREL 300 MG TAB PO ONE (16:15)
[2019-12-06] MEDS ORDERED: MORPHINE SULF INJ 2 MG/ML SYRINGE 1ML IV PRN (16:30)
[2019-12-06] MEDS ORDERED: VANCOMYCIN 500 MG in D5W 5% 100 ML IV ONE ×2 (17:00→18:00)
[2019-12-06] MEDS: MAGNESIUM SULFATE 1GM/100ML 100 ML IV SCH ×3 (17:00→21:27)
[2019-12-06 19:22] LABS: BUN/Creatinine Ratio 23.7; Calcium 6.7 mg/dL (8.5-10.1); INR 1.21 (0.9-1.15); Partial Thromboplastin Time 64.2 sec (23.64-32.05); Potassium 3.5 mmol/L (3.5-5.1)
[2019-12-06] MEDS: HEPARIN DRIP/D5W 100UNITS/ML 250 ML IV SCH (19:23)
[2019-12-06 19:25] LABS: Lactic Acid w/Reflex 2.5 mmol/L (0.4-2.0)
--- NOTE | 2019-12-06 19:30 | NUR ---
OPENING NOTE RECEIVED REPORT FROM MARCEL LAMA. PATIENT INTUBATED AND SEDATED ON FENT 25 AND VERSED 10. PATIENT TOLERATING VENTILATOR. STATING >95% SPO2 ON BEDSIDE MONITOR. SR 98 ON AMIO 1MG/HR, BP 117/84 ON LEVOPHED AT 26 MCG, NO ECTOPY. CVP MONITOR 3-4, ZEROED. BARTON PATENT TO GRAVITY. NGT CLAMPED. INSULIN GTT AT 6. 1/2NA W/ 1AMP NAHCO3 AT 70ML/HR. HEPARIN GTT 5.4ML/HR. RIGHT FEMORAL AND IJ TLC CENTRAL LINE CATHETERS INTACT. FOR MORE INFORMATION SEE INTERVENTIONS . FOR GTTS AND THEIR TITRATIONS SEE IV SPREAD SHEET. ALL SAFETY PRECAUTIONS IN PLACE.
[2019-12-06] MEDS: VASOPRESSIN 50 UNITS in D5W 5% 247.5 ML IV SCH (20:00)
--- NOTE | 2019-12-06 20:06 | NUR ---
BS 189 INSULIN GTT CHANGED TO 5 UNITS PER HOUR PER ALGORITHM
[2019-12-06] MEDS: AMIODARONE 450mg/250ml AE 250 ML IV SCH (20:08)
[2019-12-06] MEDS: PROPOFOL 100 ML IV SCH (20:09)
[2019-12-06] MEDS ORDERED: MAGNESIUM SULFATE 1GM/100ML 100 ML IV ONE (21:22)
--- NOTE | 2019-12-06 21:23 | NUR ---
BS 163 INSULIN GTT SET TO 4
[2019-12-06] MEDS: INSULIN LANTUS (GLARGINE) 1 /0.01ml (100units/ml) SC SCH (21:24)
[2019-12-06] MEDS: MEROPENEM 1GM IVPB 100 ML IV SCH (21:29)
--- NOTE | 2019-12-06 21:49 | NUR ---
SET UP PASSWORD WITH [place] [id number]. UPDATED CAROLYN BEST ON PATIENT STATUS, ALL QUESTIONS AND CONCERNS ADDRESSED AT THIS TIME. JENNY TRANSLATED JAPANESE TO [place] FOR PT DURING PHONE CALL. INFORMED ABOUT COVID NEGATIVE
--- NOTE | 2019-12-06 22:50 | NUR ---
BS 206 INSULIN SET TO 5
[2019-12-07] VITALS (94 sets, daily range): BP systolic 79–159; BP diastolic 18–95
[2019-12-07] MEDS: NOREPINEPHRINE 8 MG/250ML KIT 250 ML IV SCH (00:15)
[2019-12-07] MEDS: ACCU-CHEK COMFORT CURVE STRIP VI SCH ×15 (00:27→22:36)
[2019-12-07] MEDS: HYDROCORTISONE SOD SUCC 100 MG/2ML INJ VIAL IV SCH ×4 (00:27→18:21)
--- NOTE | 2019-12-07 00:27 | NUR ---
BS 190 INSULIN @ 5
[2019-12-07] MEDS: fentaNYL Drip 2500mCg/250mlNS 250 ML IV SCH (01:00)
[2019-12-07 01:20] LABS: INR 1.11 (0.9-1.15); Partial Thromboplastin Time 54.4 sec (23.64-32.05)
[2019-12-07] MEDS: AMIODARONE 450mg/250ml AE 250 ML IV SCH (01:34)
[2019-12-07] MEDS: MIDAZOLAM DRIP 50 mg/50mL 50 ML IV SCH ×3 (01:34→15:12)
[2019-12-07] MEDS: SODIUM BICARBONATE 50ML VIAL 50 ML in SOD CHL 0.45% 1,000 ML IV SCH (01:35)
--- NOTE | 2019-12-07 01:46 | NUR ---
BS 183 INSULIN @ 5
--- NOTE | 2019-12-07 02:56 | NUR ---
BS 174
--- NOTE | 2019-12-07 03:15 | NUR ---
COMPLETE BED BATH GIVEN SKIN REASSESSED AND NO NEW BREAK DOWN NOTED. PATIENT TOLERATED WELL. PLACED IN A POSITION OF COMFORT
[2019-12-07 04:19] LABS: Basophils # (auto) 0 10 ^3/uL (0-0.2); Basophils % (auto) 0.1 % (0.0-2.0); Eosinophils # (auto) 0 10 ^3/uL (0-0.8); Hematocrit 36.6 % (36.0-46.0); Hemoglobin 12.8 g/dL (12.2-16.2); Lymphocytes # (auto) 2.4 10 ^3/uL (0.4-5.4); Mean Corpuscular Hemoglobin 32.6 pg (28.0-32.0); Mean Corpuscular Hgb Conc. 34.9 g/dL (32.0-36.0); Mean Corpuscular Volume 93.2 fL (80.0-100.0); Monocytes # (auto) 1.1 10 ^3/uL (0-1.3); Neutrophils # (auto) 14.9 10 ^3/uL (1.6-8.6); Neutrophils % (auto) 80.9 % (37.0-80.0); Nucleated Red Blood Cells % 0.1 %; Platelet Count (auto) 233 10^3/uL (140-450); Red Blood Cells 3.93 10^6/uL (4.0-5.20); Red Cell Distribution Width 12.6 % (11.8-14.3); White Blood Cell 18.4 10^3/uL (4.4-10.8)
--- NOTE | 2019-12-07 04:20 | NUR ---
BS 139 INSULIN @ 3
--- NOTE | 2019-12-07 04:22 | NUR ---
HEPARIN GTT THIRD PTT RETURN THERAPEUTIC AT 54.4. WILL CHECK PTT Q 12
[2019-12-07 04:34] LABS: Calcium 7.1 mg/dL (8.5-10.1); Potassium 3.1 mmol/L (3.5-5.1)
[2019-12-07 04:41] LABS: Albumin 2.7 g/dL (3.4-5.0); BUN/Creatinine Ratio 20.7; Bilirubin, Total 0.8 mg/dL (0.2-1.0); Magnesium 2.9 mg/dL (1.6-2.6); Total Protein 6.6 g/dL (6.4-8.2)
[2019-12-07] MEDS: InsuLIN R (HUMAN) 100 UNITS in SODIUM CHL 0.9% 99 ML IV SCH (05:09)
[2019-12-07] MEDS: FUROSEMIDE 20 MG/2 ML VIAL IV SCH ×2 (06:17→18:21)
--- NOTE | 2019-12-07 06:23 | NUR ---
INSULIN GTT INSULIN SET TO 5 FOR BS OF 201
[2019-12-07] MEDS: INSULIN LANTUS (GLARGINE) 1 /0.01ml (100units/ml) SC SCH ×2 (06:27→22:00)
--- NOTE | 2019-12-07 07:10 | NUR ---
Respiratory note: CALLED TO REPORT CRITICAL ABG. LEFT MESSAGE WITH ABG RESULTS.
--- NOTE | 2019-12-07 07:40 | NUR ---
BS 203 INSULIN GTT @ 5 UNITS PER HOUR
[2019-12-07 08:00] LABS: Lactic Acid w/Reflex 2.6 mmol/L (0.4-2.0)
[2019-12-07] MEDS: CARVEDILOL 3.125 MG TAB PO SCH ×2 (08:00→17:25)
--- NOTE | 2019-12-07 08:09 | NUR ---
PAGED DR ALATORRE REGARDING ORDERS FOR POTASSIUM DUE TO AM POTASSIUM LEVEL AND PATIENT CURRENTLY IN AFIB WITH FREQUENT PVCS/ QUADGEMINY AT TIMES
[2019-12-07] MEDS ORDERED: POTASSIUM CHLORIDE 60 MEQ, LIDOCAINE 1% (LOCAL ANESTH.) 6 ML in SODIUM CHL 0.9% 500 ML IV ONE (09:15)
--- NOTE | 2019-12-07 09:31 | NUR ---
UPDATED FAMILY SON/ ON PLAN OF CARE AFTER THEY PROVIDED PASSWORD OVER PHONE. REQUESTING TO COME VISIT BUT NO VISITOR POLICY EXPLAINED UNLESS PATIENT TURNS MORE CRITICAL AND THEY VERBALIZED UNDERSTANDING.
[2019-12-07] MEDS: MEROPENEM 1GM IVPB 100 ML IV SCH ×2 (09:52→22:08)
[2019-12-07] MEDS: DOCUSATE SOD 100 MG CAP PO SCH (09:52)
[2019-12-07] MEDS: FOLIC ACID 1 MG TAB PO SCH (09:52)
[2019-12-07] MEDS: FLORASTOR (S. BOULARDII) 250 MG CAP PO SCH (09:52)
[2019-12-07] MEDS: ASPirin-EC 81 mg tab PO SCH (09:52)
[2019-12-07] MEDS ORDERED: METHOTREXATE 2.5 MG TAB PO SCH (10:00)
[2019-12-07] MEDS ORDERED: CLOPIDOGREL BISULFATE 75 MG TAB PO SCH (10:00)
[2019-12-07] MEDS ORDERED: POTASSIUM CHL 20MEQ/100ML 200 ML IV ONE (10:12)
--- NOTE | 2019-12-07 10:15 | NUR ---
DR ALATORRE AT BEDSIDE, NEW ORDERS RECEIVED
[2019-12-07] MEDS: PANTOPRAZOLE 40 MG/10 ML VIAL INJ IV SCH (10:20)
[2019-12-07] MEDS: OSELTAMIVIR 30MG/5ML ORAL SUSP GT SCH ×2 (10:21→22:08)
[2019-12-07] MEDS: POTASSIUM EFFERVESENT TAB 25 MEQ GT SCH (10:21)
[2019-12-07] MEDS: SOD CHL 0.45% WITH 20MEQ KCL 1,000 ML IV SCH (10:39)
[2019-12-07] MEDS: VANCOMYCIN 1GM/250ML 250 ML IV SCH (12:15)
[2019-12-07] MEDS: POTASSIUM CHL 20MEQ/100ML 100 ML IV SCH ×2 (12:16→14:24)
--- NOTE | 2019-12-07 12:25 | NUR ---
AMIODARONE OFF AT THIS TIME DUE TO PROLONGED QT AND BRADYCARDIA HIGH 50'S
--- NOTE | 2019-12-07 12:29 | NUR ---
DR MARKS AT BEDSIDE NEW ORDERS RECEIVED Addendum: 12/07/19 at 1230 by Yakov Quiñonez RN ACTUAL TIME AT BEDSIDE AROUND 1000
--- NOTE | 2019-12-07 14:28 | NUR ---
CONSENT OBTAINED FOR CTA CHEST/ABD/PELVIS FROM [facility] VERIFIED WITH SECOND RN
[2019-12-07] MEDS ORDERED: IOHEXOL 350 MG/ML 100ML IJ ONE (15:23)
--- NOTE | 2019-12-07 15:50 | NUR ---
RT Transport Note: Patient transported to {CT} with RN {PHILLIP}. Patient transported to and from procedure on ventilator with previous ordered settings. Patient on merchandise coordinator with alarms set and audible, ambu-bag/mask connected to 02 tank. Patient returned to room with no adverse reaction noted. Transport completed without incident.
[2019-12-07 15:52] LABS: Lactic Acid w/Reflex 2.6 mmol/L (0.4-2.0)
--- NOTE | 2019-12-07 17:30 | NUR ---
HEPARIN GTT OFF DUE TO ORDER FROM DR MARKS VIA TELEPHONE, DC PLAVIX AND KEEP ASA. AWARE OF ALL TODAY'S CT RESULTS. DR DICKINSON AWARE OF CT RESULTS. DR CORRAL CONSULTED.
--- NOTE | 2019-12-07 18:00 | NUR ---
UPDATED FAMILY ON PLAN OF CARE
--- NOTE | 2019-12-07 19:10 | NUR ---
OPENING NOTE RECEIVED REPORT FROM MARCEL LAMA. PATIENT INTUBATED AND ON NO SEDATION. PATIENT TOLERATING VENTILATOR. STATING >95% SPO2 ON BEDSIDE MONITOR. SR 97, BP 130'S/80'S ON LEVOPHED AT 24 MCG, NO ECTOPY. CVP MONITOR 5-6, ZEROED. BARTON PATENT TO GRAVITY. NGT CLAMPED. INSULIN GTT AT 4. RIGHT FEMORAL AND IJ TLC CENTRAL LINE CATHETERS INTACT. FOR MORE INFORMATION SEE INTERVENTIONS . FOR GTTS AND THEIR TITRATIONS SEE IV SPREAD SHEET. ALL SAFETY PRECAUTIONS IN PLACE.
[2019-12-07] MEDS: VASOPRESSIN 50 UNITS in D5W 5% 247.5 ML IV SCH (19:26)
[2019-12-07] MEDS: PROPOFOL 100 ML IV SCH (19:26)
--- NOTE | 2019-12-07 19:30 | NUR ---
REPORT GIVEN TO JOHN LAMA
--- NOTE | 2019-12-07 19:42 | NUR ---
BS 139 INSULIN GTT 3
--- NOTE | 2019-12-07 21:05 | NUR ---
BS 124 INSULIN GTT 3
--- NOTE | 2019-12-07 22:37 | NUR ---
BS 132 INSULIN GTT 3
[2019-12-08] VITALS (46 sets, daily range): BP systolic 91–140; BP diastolic 27–99
--- NOTE | 2019-12-08 00:04 | NUR ---
BS 150 GTT SET TO 4
[2019-12-08] MEDS: InsuLIN R (HUMAN) 100 UNITS in SODIUM CHL 0.9% 99 ML IV SCH (00:12)
[2019-12-08] MEDS: ACCU-CHEK COMFORT CURVE STRIP VI SCH ×8 (00:12→12:00)
[2019-12-08] MEDS: SOD CHL 0.45% WITH 20MEQ KCL 1,000 ML IV SCH (00:29)
[2019-12-08] MEDS: AMIODARONE 450mg/250ml AE 250 ML IV SCH (00:30)
[2019-12-08] MEDS: ACETAMINOPHEN 500 MG TAB PO PRN ×2 (00:30→10:16)
[2019-12-08] MEDS: fentaNYL Drip 2500mCg/250mlNS 250 ML IV SCH (01:00)
--- NOTE | 2019-12-08 01:20 | NUR ---
BS 153 INSULIN GTT 4
--- NOTE | 2019-12-08 02:15 | NUR ---
COMPLETE BED BATH GIVEN SKIN REASSESSED AND NO NEW BREAK DOWN NOTED. PATIENT TOLERATED WELL. PLACED IN A POSITION OF COMFORT
[2019-12-08] MEDS: INSULIN LANTUS (GLARGINE) 1 /0.01ml (100units/ml) SC SCH (03:12)
--- NOTE | 2019-12-08 03:13 | NUR ---
BS 121 INSULIN GTT @ 3
[2019-12-08 04:38] LABS: Basophils # (auto) 0 10 ^3/uL (0-0.2); Basophils % (auto) 0.2 % (0.0-2.0); Eosinophils # (auto) 0 10 ^3/uL (0-0.8); Hematocrit 35.1 % (36.0-46.0); Lymphocytes # (auto) 2.1 10 ^3/uL (0.4-5.4); Lymphocytes % (auto) 11.9 % (10.0-50.0); Mean Corpuscular Hemoglobin 32.7 pg (28.0-32.0); Mean Corpuscular Hgb Conc. 34.3 g/dL (32.0-36.0); Mean Corpuscular Volume 95.4 fL (80.0-100.0); Monocytes # (auto) 1.1 10 ^3/uL (0-1.3); Monocytes % (auto) 6.1 % (0.0-12.0); Neutrophils # (auto) 14.4 10 ^3/uL (1.6-8.6); Neutrophils % (auto) 81.8 % (37.0-80.0); Nucleated Red Blood Cells % 0.4 %; Platelet Count (auto) 229 10^3/uL (140-450); Red Blood Cells 3.68 10^6/uL (4.0-5.20); White Blood Cell 17.6 10^3/uL (4.4-10.8)
[2019-12-08 04:43] LABS: Potassium 3.7 mmol/L (3.5-5.1)
[2019-12-08 04:46] LABS: Lactic Acid w/Reflex 2.3 mmol/L (0.4-2.0)
[2019-12-08 04:47] LABS: Albumin 2.6 g/dL (3.4-5.0); BUN/Creatinine Ratio 18.1; Calcium 6.6 mg/dL (8.5-10.1); Magnesium 2.2 mg/dL (1.6-2.6)
[2019-12-08 04:50] LABS: Bilirubin, Total 1.1 mg/dL (0.2-1.0); Total Protein 6.3 g/dL (6.4-8.2)
--- NOTE | 2019-12-08 05:02 | NUR ---
BS 91 CHANGED TO ALGORITHM 2. INSULIN GTT @ 1
[2019-12-08] MEDS ORDERED: InsuLIN R (HUMAN) 100 UNITS in SODIUM CHL 0.9% 99 ML IV SCH ×2 (05:03→06:16)
--- NOTE | 2019-12-08 05:10 | NUR ---
COOLING MEASURES STARTED PATIENT TEMP 100.4 ICE PACKS PLACED
[2019-12-08] MEDS: VANCOMYCIN 1GM/250ML 250 ML IV SCH (05:58)
[2019-12-08] MEDS: FUROSEMIDE 20 MG/2 ML VIAL IV SCH (05:59)
[2019-12-08] MEDS: MEROPENEM 1GM IVPB 100 ML IV SCH (05:59)
--- NOTE | 2019-12-08 06:16 | NUR ---
BS 82 INSULIN GTT CHANGED TO @ 0.5 CHANGED ALGORITHM TO #1
--- NOTE | 2019-12-08 06:30 | NUR ---
SOFT MITTENS PLACED ON PATIENT PATIENT OPENING EYES MORE, MOVING HANDS TOWARDS ETT. PLACED SOFT MITTEN FOR PATIENT SAFETY
--- NOTE | 2019-12-08 07:00 | NUR ---
OPENING NOTE REPORT RECEIVED FROM DRAWING TRACER NURSE. PATIENT IN BED AT THIS TIME INTUBATED OFF SEDATION SINCE YESTERDAY. AT THIS TIME PATIENT IS RESTLESS IN BED NOTED TO ONLY BE MOVING LEFT SIDE, RIGHT SIDE FLACCID. RESPIRATIONS AGONAL, IN THE 30'S AND ASYNCHRONOUS FROM THE VENTILATOR. RESTARTED SEDATION PER PROTOCOL. PATIENT NOT FOLLOWING COMMANDS OR TRACKING. BED IN LOW POSITION. WILL CONTINUE TO MONITOR.
[2019-12-08] MEDS: CARVEDILOL 3.125 MG TAB PO SCH (08:00)
[2019-12-08] MEDS ORDERED: HYDROCORTISONE SOD SUCC 100 MG/2ML INJ VIAL IV SCH (10:00)
[2019-12-08] MEDS ORDERED: ENOXAPARIN SOD 40 MG/0.4 ML SYRINGE SC SCH (10:00)
[2019-12-08] MEDS ORDERED: DOCUSATE ORAL LIQUID 100 MG/10 ML UD GT SCH (10:00)
[2019-12-08] MEDS: OSELTAMIVIR 30MG/5ML ORAL SUSP GT SCH (10:15)
[2019-12-08] MEDS: POTASSIUM EFFERVESENT TAB 25 MEQ GT SCH (10:15)
[2019-12-08] MEDS: PANTOPRAZOLE 40 MG/10 ML VIAL INJ IV SCH (10:15)
--- NOTE | 2019-12-08 10:15 | NUR ---
DR MARKS AT BEDSIDE TO ASSESS PATIENT AND DISCUSS PLAN OF CARE. ALL ORDERS NOTED IN CHART. MD TO CALL FAMILY AND UPDATE ON PATIENT STATUS.
[2019-12-08] MEDS: ASPirin-EC 81 mg tab PO SCH (10:16)
[2019-12-08] MEDS: FLORASTOR (S. BOULARDII) 250 MG CAP PO SCH (10:16)
[2019-12-08] MEDS: FOLIC ACID 1 MG TAB PO SCH (10:16)
--- NOTE | 2019-12-08 10:48 | NUR ---
DR ALATORRE AT BEDSIDE TO ASSESS PATIENT AND DISCUSS PLAN OF CARE. PER MD DISCONTINUE ALL FLUIDS AT THIS TIME. ALL ORDERS NOTED IN CHART.
[2019-12-08 11:14] LABS: Lactic Acid w/Reflex 6.1 mmol/L (0.4-2.0)
[2019-12-08] MEDS ORDERED: SOD CHL 0.9%/ KCL 20MEQ 1,000 ML IV SCH (11:15)
[2019-12-08] MEDS ORDERED: POTASSIUM CHL 20MEQ/100ML 100 ML IV SCH (11:30)
[2019-12-08] MEDS ORDERED: SODIUM CHLORIDE 0.9% 500 ML IV ONE (11:45)
[2019-12-08] MEDS ORDERED: ALBUMIN 25% 100 ML IV ONE (12:00)
--- NOTE | 2019-12-08 12:20 | NUR ---
RHYTHM CHANGE PATIENT NOTED TO HAVE A RHYTHM CHANGE AND DECREASE IN HEART RATE. EKG PERFORMED PER PROTOCOL AND STAT TROPONIN SENT. PAGED DR MUIR AND DR MARKS STAT TO INFORM OF PATIENT STATUS CHANGE. SPOKE TO DR MARKS AND HE IS COMING DOWN TO SEE PATIENT. UPON MD ARRIVAL DR MARKS CALLED DR YLN WHO IS COVERING FOR WOOD TO INFORM OF PATIENT CHANGE.
[2019-12-08] MEDS ORDERED: PHENYLEPHRINE IV 250 ML IV ONE (12:26)
--- NOTE | 2019-12-08 12:30 | NUR ---
HOSPITALIST AT BEDSIDE/CONTACT FAMILY CONTACT FAMILY PER DR MARKS REQUEST REGARDING PATIENT STATUS. THIS NURSE SPOKE WITH PATIENT'S SPOUSE IN [place] AND TRANSLATE DR MARKS'S MESSAGE OF A POOR PROGNOSIS, SPOUSE VERBALIZED UNDERSTANDING. PER PATIENT'S SPOUSE, CONTINUE WITH FULL CODE STATUS AND THEY ARE "2 MINUTES AWAY.
--- NOTE | 2019-12-08 12:32 | NUR ---
CODE BLUE CODE BLUE CALLED DR MARKS, DR YAÑEZ, AND DR LYN PRESENT. FAMILY ENROUTE TO HOSPITAL. SEE CODE SHEET.
[2019-12-08] MEDS ORDERED: CALCIUM CHLOR(10%) 100MG/ML 10ML SYRINGE IV ONE (13:34)
[2019-12-08] MEDS ORDERED: ATROPINE SULF 1 MG/10ml SYR IV ONE (13:34)
[2019-12-08] MEDS ORDERED: EPINEPHrine HCL 1 MG/10 ML SYRG IV ONE (13:34)
--- NOTE | 2019-12-08 13:35 | NUR ---
PATIENT DECLARED BY DR MARKS. TOD [id number]
[2019-12-08] MEDS ORDERED: FUROSEMIDE 20 MG/2 ML VIAL IV SCH (14:00)
--- NOTE | 2019-12-08 14:02 | NUR ---
[facility] SPOKE TO ELOISE FROM [facility] PATIENT IS NOT A CANDIDATE FOR ORGAN DONATION DUE TO INFLUENZA POSITIVE. REF# [id number]
--- NOTE | 2019-12-08 14:08 | NUR ---
CALLED DATA MANAGEMENT TO INFORM OF PATIENTS . AWAITING CALL BACK.
--- NOTE | 2019-12-08 15:50 | NUR ---
ROLL TUBE SETTER SPOKE TO DEPUTY CARMEN JENKINS. PATIENT CLEARED BY ROLL TUBE SETTER CASE# [id number]
--- NOTE | 2019-12-08 17:23 | NUR ---
SPOKE TO YUNIOR FROM HOME SELECTED BY PATIENTS FAMILY. PER YUNIOR THEY HAVE NOT BEEN CONTACTED BY FAMILY TO UTILIZE SERVICES.
[2019-12-09 10:03] LABS: Hepatitis B Surface Antibody Negative
[2019-12-09 10:25] LABS: Hepatitis A Total Antibody Positive
[2019-12-09 11:31] LABS: Hepatitis A Ab IgM Negative; Hepatitis B Core IgM Negative; Hepatitis B Core Total AB Negative; Hepatitis B Surface Antigen Negative (Negative); Hepatitis C Antibody Negative (Negative)
== END 2019-12-08 13:35 | disposition expired | DRG 720 ==
LOC: EDBD 14:06 → ER 14:06 → TELE 14:07 → TELE-EAST 16:05 → ICU WEST 17:15
PROVIDERS: ADMIT Hospitalist; ATTEND Internal Medicine
PROC: 5A1945Z Respiratory Ventilation, 24-96 Consecutive Hours (ICD-10-PCS; principal; 2019-12-05)
PROC: 0BH17EZ Insertion of Endotracheal Airway into Trachea, Via Natural or Artificial Opening (ICD-10-PCS; 2019-12-05)
PROC: 5A12012 Performance of Cardiac Output, Single, Manual (ICD-10-PCS; 2019-12-05)
PROC: 02HV33Z Insertion of Infusion Device into Superior Vena Cava, Percutaneous Approach (ICD-10-PCS; 2019-12-05)
DX: A41.9 Sepsis, unspecified organism (principal); I21.4 Non-ST elevation (NSTEMI) myocardial infarction; I46.9 Cardiac arrest, cause unspecified; I50.43 Acute on chronic combined systolic (congestive) and diastolic (congestive) heart failure; I63.9 Cerebral infarction, unspecified; J96.21 Acute and chronic respiratory failure with hypoxia; I13.0 Hypertensive heart and chronic kidney disease with heart failure and stage 1 through stage 4 chronic kidney disease, or unspecified chronic kidney disease; J10.08 Influenza due to other identified influenza virus with other specified pneumonia; N17.0 Acute kidney failure with tubular necrosis; R65.21 Severe sepsis with septic shock; J18.9 Pneumonia, unspecified organism; I48.91 Unspecified atrial fibrillation; R79.89 Other specified abnormal findings of blood chemistry; E66.9 Obesity, unspecified; N18.9 Chronic kidney disease, unspecified; Z68.26 Body mass index [BMI] 26.0-26.9, adult; E78.5 Hyperlipidemia, unspecified; F17.210 Nicotine dependence, cigarettes, uncomplicated; F41.9 Anxiety disorder, unspecified; I25.10 Atherosclerotic heart disease of native coronary artery without angina pectoris; I35.0 Nonrheumatic aortic (valve) stenosis; M06.9 Rheumatoid arthritis, unspecified; T50.1X5A Adverse effect of loop [high-ceiling] diuretics, initial encounter; Z78.9 Other specified health status; Z79.02 Long term (current) use of antithrombotics/antiplatelets; Z79.4 Long term (current) use of insulin; Z79.82 Long term (current) use of aspirin; Z82.49 Family history of ischemic heart disease and other diseases of the circulatory system; Z83.3 Family history of diabetes mellitus; Z95.2 Presence of prosthetic heart valve; Z20.828 Contact with and (suspected) exposure to other viral communicable diseases; R00.1 Bradycardia, unspecified
CPT/HCPCS: 36415; 36600; 70450; 71045; 71260; 74177; 80048; 80053; 80061; 80074; 80202; 80307; 81001; 82010; 82570; 82728; 82805; 82962; 83036; 83540; 83550; 83605; 83615; 83735; 83880; 83930; 84100; 84156; 84300; 84443; 84484; 85025; 85379; 85610; 85652; 85730; 86141; 86431; 86704; 86706; 86708; 86803; 87040; 87070; 87077; 87081; 87186; 87205; 87340; 87804; 87880; 93005; 94002; 94003; 99291; C9113; G0378; G9035; J0330; J0696; J1815; J2001; J2185; J2250; J2543; J2704; J3480; J3490; J7060; P9047